=== PATIENT | male | born 1960 | race Caucasian/White ===

== ENCOUNTER 2017-11-19 06:30 | Day surgery (SDC) | payer OTHER ==
[2017-11-18 17:20] LABS: Potassium 4.9 mEq/L (3.6-5.0)
--- NOTE | 2017-11-18 17:46 | RAD REPORT ---
EXAM DESCRIPTION: RADOP - Outpt Chest Pa/Lat (2 Views) - 11/18/2017 3:39 pm CLINICAL HISTORY: preop COMPARISON: 2016 FINDINGS: The lungs appear clear of acute infiltrate. The heart is normal size. IMPRESSION: No acute abnormality is displayed
--- NOTE | 2017-11-19 05:57 | EKG ---
Test Date: 2017-11-18 Test Time: 15:31:59 Manager Loan: MICKIE MEASUREMENT RESULTS: Intervals: Rate: 50 LA: 140 QRSD: 94 QT: 398 QTc: 362 [place]: P: 49 LA: 140 QRS: 59 T: 42 INTERPRETIVE STATEMENTS: Sinus bradycardia Otherwise normal ECG No previous ECG available for comparison Electronically Signed On 11-19-17 05:56:52 CDT by Yung Sheldon
[~2017-11-19 06:30] MED LIST: CEFAZOLIN/SWI 1gm 1 GM/10 ML SYR IV SCH
[2017-11-19 06:56] LABS: Absolute Lymphocytes (CBC) 1.8 K/uL (0.7-4.9); Absolute Monocytes 0.6 K/uL (0.1-1.3); Absolute Neutrophil 3.9 K/uL (1.8-8.0); Basophils % 1.4 % (0-1.3); Eosinophils % 2.4 % (0-4.4); Hematocrit 47.4 % (39.6-49.0); Lymphocytes % 27.6 % (15.3-44.8); MCH 30.1 pg (27.0-35.0); MPV 7.9 fL (7.6-11.3); Monocytes % 8.6 % (3.3-12.3); RBC Red Blood Cell Count 5.26 M/uL (4.33-5.43)
[2017-11-19] MEDS ORDERED: Ringers Lactate 1,000 ML IV ONE (07:19)
[2017-11-19] MEDS ORDERED: BUPIVACAINE 0.5% PF 10 ML VIAL ONE (07:23)
[2017-11-19] MEDS ORDERED: PROPOFOL 200 MG/20 ML VIAL IV ONE (07:42)
[2017-11-19] MEDS ORDERED: MIDAZOLAM HCL 2 MG/2 ML INJ ONE (07:43)
[2017-11-19] MEDS ORDERED: LIDOCAINE 2% MPF 5 ML VIAL ONE (07:43)
[2017-11-19] MEDS ORDERED: ROCURONIUM 50 MG/5 ML VIAL IV ONE (07:44)
[2017-11-19] MEDS ORDERED: ONDANSETRON 4 MG/2 ML VIAL ONE (07:44)
[2017-11-19] MEDS ORDERED: FENTANYL CITR 250 MCG/5 ML ONE (08:06)
--- NOTE | 2017-11-19 08:18 | P.BOP ---
Preoperative diagnosis: perianal mass Postoperative diagnosis: same, int and ext hemorrhoids Primary procedure: 1. excisional bx of perianal mass 2x2 cm Secondary procedure: 2. EUA, 3. anoscopy, 4. rigid proctoscopy, Estimated blood loss: <5cc Specimen: mass Findings: posterior perianal mass Anesthesia: General Complications: None Transferred to: Recovery Room Condition: Good
[2017-11-19] MEDS ORDERED: CIPROFLOXACIN 400mg IV 400 MG/200 ML BAG IV ONE (08:26)
[2017-11-19] MEDS ORDERED: CODEINE 30MG/APAP 300MG TAB PO ONE (09:05)
[2017-11-19] MEDS ORDERED: CODEINE 30MG/APAP 300MG TAB ONE (09:21)
--- NOTE | 2017-11-19 12:12 | OP ---
Date of Procedure: 11/19/2017 Surgeon: Best Allen MD Preoperative Diagnosis: Perianal mass. Postoperative Diagnosis: Perianal mass plus internal and external hemorrhoids. Procedures: 1.Exit excisional biopsy of a perianal mass. 2.Examination under anesthesia. 3.Anoscopy. 4.Proctoscopy. Specimen: Perianal mass. Findings: Posterior perianal mass and also internal and external hemorrhoids. Anesthesia: General plus local. Indications: This is the case of a male, who came to us recommended by the GI doctor to have a peria nal mass removed. The patient had a colonoscopy done recently. The patient has history of prostate cancer that was treated at [facility] previously. He denies any bleeding. Benefits, alternatives, and alternatives of above procedure were fully explained to the patient, which include but are not li mited to infection, bleeding, damage to adjacent structures, anesthesia complication, anal stricture, anal incontinence, bowel perforation, NE, and even . He also understands this may not relieve the symptoms. He might need more than one surgical intervention, depending on the pathology. He und erstood and signed the consent. Description Of Procedure: The patient was brought to the operating room, placed in supine position. Anesthesia was done without complication. The patient was placed in lateral position with proper pr otection. The area of concern was previously identified be me and the patient. Once we were there, there was no obvious alert lesion on the perianal region posteriorly. Still, we did a rectal examina tion under anesthesia. Rigid proctoscopy all the way about 15 cm with no masses seen on the rectum. We noticed internal and external hemorrhoids, specially when we did the anoscope with a window on th e side. Then, we had this lesion just in the area of anus. We did a wedge excision of that lesion a ll the way full thickness into the fatty tissue underneath. Deeper than that does not look affected by it. Muscle was not affected by it. So, once we had this, we proceeded to irrigate the area. Sen d the mass to the pathologist and then proceeded to approximate the area with a 3-0 chromic. That wa s done after irrigation and after hemostasis was obtained. The patient tolerated the procedure well. Local anesthetic was applied to the area. The patient was sent to recovery in stable condition. DISCHARGE SUMMARY Diagnosis: Perianal mass. Internal and external hemorrhoids. Procedure: Examination under anesthesia, anoscopy, proctoscopy, excisional biopsy of perianal mass a bout 2 x 2 cm. Activity: This patient's home activity is as tolerated. No heavy lifting. Followup: Follow up in my office in 1 week. Call for appointment at [phone]. Sitz bath 4 times a day and after every bowel movement. Medications: See orders. DOLORES/GERMAN Voice ID: [id number] Report ID: [id number]
== END 2017-11-19 09:47 | disposition home or self-care (01) ==
LOC: OR 06:30
PROVIDERS: ATTEND Surgery
DX: K64.8 Other hemorrhoids; R22.9 Localized swelling, mass and lump, unspecified; Z80.8 Family history of malignant neoplasm of other organs or systems; Z85.46 Personal history of malignant neoplasm of prostate; K64.4 Residual hemorrhoidal skin tags
CPT/HCPCS: 36415; 71046; 80048; 85025; 88305; 93005; J0744; J2250; J2405